=== PATIENT | female | born 1995 | race Caucasian/White ===

== ENCOUNTER 2021-11-25 00:07 | Emergency (ER) | payer MEDICAID ==
[~2021-11-25] VITALS: Ht 170.2 cm; Wt 95.3 kg
[2021-11-25 02:25] LABS: Urine Bacteria MANY /hpf (None Seen); Urine Blood Negative /uL (Negative); Urine Mucus FEW (None Seen); Urine Specific Gravity 1.028 (1.001-1.035); Urine WBC 28 /hpf (0 - 5); Urine WBC Clumps PRESENT /hpf (None Seen)
[2021-11-25 03:33] LABS: Basophils # (auto) 0 10 ^3/uL (0-0.2); Basophils % (auto) 0.3 % (0.0-2.0); Eosinophils # (auto) 0 10 ^3/uL (0-0.8); Eosinophils % (auto) 0.2 % (0.0-7.0); Hematocrit 42.1 % (36.0-46.0); Hemoglobin 14.1 g/dL (12.2-16.2); Lymphocytes # (auto) 1.9 10 ^3/uL (0.4-5.4); Mean Corpuscular Hemoglobin 28.9 pg (28.0-32.0); Mean Corpuscular Hgb Conc. 33.5 g/dL (32.0-36.0); Mean Corpuscular Volume 86.1 fL (80.0-100.0); Monocytes # (auto) 0.8 10 ^3/uL (0-1.3); Monocytes % (auto) 6.9 % (0.0-12.0); Neutrophils # (auto) 8.3 10 ^3/uL (1.6-8.6); Neutrophils % (auto) 75.6 % (37.0-80.0); Nucleated Red Blood Cells % 0.1 %; Red Blood Cells 4.89 10^6/uL (4.0-5.20); Red Cell Distribution Width 14.1 % (11.8-14.3)
[2021-11-25 03:42] LABS: Albumin 2.5 g/dL (3.4-5.0); Calcium 8.9 mg/dL (8.5-10.1); Potassium 4.4 mmol/L (3.5-5.1)
[2021-11-25 03:45] LABS: BUN/Creatinine Ratio 14.8
[2021-11-25 03:48] LABS: Bilirubin, Total 0.4 mg/dL (0.2-1.0); Total Protein 6.4 g/dL (6.4-8.2)
[2021-11-25] MEDS ORDERED: PRENCAP69 PO (05:38)
[2021-11-25] MEDS ORDERED: CEPH500C PO (05:38)
[2021-11-25 06:20] VITALS: BP 148/91
== END 2021-11-25 07:54 | disposition home or self-care (01) ==
LOC: ER 00:07
DX: O23.42 Unspecified infection of urinary tract in pregnancy, second trimester (principal); N39.0 Urinary tract infection, site not specified; Z3A.16 16 weeks gestation of pregnancy
CPT/HCPCS: 36415; 76805; 80053; 81001; 81025; 84702; 85025

== ENCOUNTER 2022-04-17 10:10 | Inpatient (IN) | payer MEDICAID ==
[~2022-04-17] VITALS: Ht 1 cm; Wt 1.0 kg
[2022-04-17] VITALS (16 sets, daily range): BP systolic 94–149; BP diastolic 61–89
[~2022-04-17 10:10] MED LIST: CEPH500C PO; PRENCAP69 PO
[2022-04-17] MEDS ORDERED: SUCCINYLCHOLINE CHLORIDE 20 MG/ML 10ML VIAL IV ONE (10:22)
[2022-04-17] MEDS ORDERED: MEPERIDINE HCL (25 MG/ML) 1ML VIAL ONE (10:39)
[2022-04-17] MEDS ORDERED: fentaNYL CITRATE 100 MCG/2 ML VL ONE (10:40)
[2022-04-17] MEDS ORDERED: MIDAZOLAM HCL 2MG/2ML 2ml VIAL (1mg/ml) ONE (10:40)
[2022-04-17] MEDS ORDERED: LACTATED RINGER'S 1,000 ML IV ONE (10:45)
[2022-04-17] MEDS: LACTATED RINGER'S 1,000 ML IV SCH (10:45)
[2022-04-17] MEDS ORDERED: PROPOFOL 10 MG/ML 20 ML IV ONE (11:00)
[2022-04-17] MEDS ORDERED: oxyTOCIN 10 UNIT/ML 10ML VIAL ONE (11:00)
[2022-04-17] MEDS ORDERED: ONDANSETRON HCL 4 MG/2 ML VIAL IV PRN ×2 (11:15→11:45)
[2022-04-17] MEDS ORDERED: LACT. RINGERS/OXYTOCIN 20UNITS 1,000 ML IV ONE (11:15)
[2022-04-17] MEDS ORDERED: HYDROmorphone HCL 2 MG/ML VL/or syr IV PRN (11:45)
[2022-04-17] MEDS ORDERED: MIDAZOLAM HCL 2MG/2ML 2ml VIAL (1mg/ml) IV PRN (11:45)
[2022-04-17] MEDS ORDERED: ePHEDrine SULFATE 50 MG/ML AMP IV PRN (11:45)
[2022-04-17] MEDS ORDERED: METOCLOPRAMIDE HCL 5MG/ml INJ 2ml VIAL IV PRN (11:45)
[2022-04-17] MEDS ORDERED: MORPHINE SULFATE 4 MG/ML SYR/VIAL IV PRN (11:45)
[2022-04-17] MEDS ORDERED: LABETALOL HCL 5 MG/ML 4ML SYRINGE IV PRN (11:45)
[2022-04-17] MEDS: LACT. RINGERS/OXYTOCIN 20UNITS 1,000 ML IV SCH ×2 (12:15→18:55)
[2022-04-17] MEDS ORDERED: OXYTOCIN 10UNIT/ML 1ML VIAL ONE (12:18)
[2022-04-17 12:22] LABS: Basophils # (auto) 0 10 ^3/uL (0-0.2); Basophils % (auto) 0.2 % (0.0-2.0); Eosinophils # (auto) 0 10 ^3/uL (0-0.8); Eosinophils % (auto) 0.2 % (0.0-7.0); Hematocrit 44.2 % (36.0-46.0); Hemoglobin 15.2 g/dL (12.2-16.2); Lymphocytes # (auto) 2.6 10 ^3/uL (0.4-5.4); Lymphocytes % (auto) 12.2 % (10.0-50.0); Mean Corpuscular Hemoglobin 29.9 pg (28.0-32.0); Mean Corpuscular Hgb Conc. 34.4 g/dL (32.0-36.0); Mean Corpuscular Volume 86.9 fL (80.0-100.0); Monocytes # (auto) 1.2 10 ^3/uL (0-1.3); Monocytes % (auto) 5.4 % (0.0-12.0); Neutrophils # (auto) 17.8 10 ^3/uL (1.6-8.6); Red Blood Cells 5.09 10^6/uL (4.0-5.20); Red Cell Distribution Width 13.8 % (11.8-14.3); White Blood Cell 21.7 10^3/uL (4.4-10.8)
[2022-04-17 12:45] LABS: Albumin 1.7 g/dL (3.4-5.0); Anion Gap 8 (5-15); Blood Urea Nitrogen 12 mg/dL (7-18); Calcium 8.1 mg/dL (8.5-10.1); Carbon Dioxide 20 mmol/L (21-32); Chloride 111 mmol/L (98-107); Glucose 114 mg/dL (74-106); Potassium 4.5 mmol/L (3.5-5.1); Sodium 139 mmol/L (136-145)
[2022-04-17 12:54] LABS: Alanine Aminotransferase 23 U/L (13-56); Alkaline Phosphatase 147 U/L (45-117); Aspartate Aminotransferase 17 U/L (15-37); BUN/Creatinine Ratio 12.8; Bilirubin, Total < 0.1 mg/dL (0.2-1.0); GFR African American 91 mL/min; GFR Non-African American 75 mL/min; Total Protein 5.6 g/dL (6.4-8.2)
[2022-04-17] MEDS ORDERED: IBUP800T27 PO (14:13)
[2022-04-17] MEDS ORDERED: DOCU-94 PO (14:13)
[2022-04-17] MEDS ORDERED: HYDR-4902 PO (14:13)
[2022-04-17] MEDS ORDERED: diphenhdrAMINE HCL 50 MG/1 ML VL IV ONE (14:32)
[2022-04-17] MEDS ORDERED: METOCLOPRAMIDE HCL 5MG/ml INJ 2ml VIAL IV ONE (14:32)
[2022-04-17] MEDS ORDERED: DexAMETHasone SOD PHOS 10MG/1ML VIAL INJ IV ONE (14:32)
[2022-04-17 17:03] LABS: Amphetamine Screen, Urine POSITIVE (NEGATIVE); Barbiturate Scree,Urine NEGATIVE (NEGATIVE); Benzodiazephine Screen, Urine POSITIVE (NEGATIVE); Cocaine Screen, Urine NEGATIVE (NEGATIVE); Opiate Scree,Urine NEGATIVE (NEGATIVE)
[2022-04-17 17:03] LABS: Urine Amorphous Crystal FEW /hpf (None Seen); Urine Bacteria NONE SEEN /hpf (None Seen); Urine Blood 3+ /uL (Negative); Urine Mucus FEW (None Seen); Urine Specific Gravity 1.037 (1.001-1.035); Urine WBC 1 /hpf (0 - 5)
[2022-04-17 17:11] LABS: Cannabinoid Screen, Urine POSITIVE (NEGATIVE); Phencyclidine Screen, Urine NEGATIVE (NEGATIVE)
[2022-04-17] MEDS: ACETAMINOPHEN IV 1000 MG/100ML (10MG/ML) IV PRN (17:59)
[2022-04-17] MEDS: ceFAZolin 1GM/50ML 50 ML IV SCH (18:28)
[2022-04-17 20:25] LABS: Basophils # (auto) 0 10 ^3/uL (0-0.2); Basophils % (auto) 0.1 % (0.0-2.0); Eosinophils # (auto) 0 10 ^3/uL (0-0.8); Hematocrit 37.8 % (36.0-46.0); Hemoglobin 12.9 g/dL (12.2-16.2); Lymphocytes # (auto) 1.3 10 ^3/uL (0.4-5.4); Lymphocytes % (auto) 6.6 % (10.0-50.0); Mean Corpuscular Hemoglobin 29.5 pg (28.0-32.0); Mean Corpuscular Hgb Conc. 34.2 g/dL (32.0-36.0); Mean Corpuscular Volume 86.2 fL (80.0-100.0); Monocytes # (auto) 0.8 10 ^3/uL (0-1.3); Neutrophils % (auto) 89.3 % (37.0-80.0); Red Blood Cells 4.39 10^6/uL (4.0-5.20); Red Cell Distribution Width 13.9 % (11.8-14.3); White Blood Cell 20.2 10^3/uL (4.4-10.8)
[2022-04-17] MEDS ORDERED: GUM (CHEWING) 1 GUM CHEW CHEW ONE (23:00)
[2022-04-18] VITALS (15 sets, daily range): BP systolic 118–153; BP diastolic 72–98
[2022-04-18] MEDS: HYDROmorphone HCL 2 MG/ML VL/or syr IV PRN ×2 (01:18→05:39)
[2022-04-18] MEDS: ceFAZolin 1GM/50ML 50 ML IV SCH ×4 (04:51→22:19)
[2022-04-18] MEDS: LACTATED RINGER'S 1,000 ML IV SCH (04:52)
[2022-04-18 05:06] LABS: RPR Non Reactive (Non Reactive)
[2022-04-18 06:31] LABS: Basophils # (auto) 0.2 10 ^3/uL (0-0.2); Eosinophils # (auto) 0 10 ^3/uL (0-0.8); Hematocrit 36.9 % (36.0-46.0); Hemoglobin 12.7 g/dL (12.2-16.2); Lymphocytes % (auto) 11.4 % (10.0-50.0); Mean Corpuscular Hgb Conc. 34.3 g/dL (32.0-36.0); Mean Corpuscular Volume 87.3 fL (80.0-100.0); Monocytes # (auto) 1.3 10 ^3/uL (0-1.3); Monocytes % (auto) 7.5 % (0.0-12.0); Neutrophils # (auto) 14.2 10 ^3/uL (1.6-8.6); Neutrophils % (auto) 80.1 % (37.0-80.0); Red Blood Cells 4.22 10^6/uL (4.0-5.20); Red Cell Distribution Width 14.3 % (11.8-14.3); White Blood Cell 17.8 10^3/uL (4.4-10.8)
[2022-04-18] MEDS: ACETAMINOPHEN IV 1000 MG/100ML (10MG/ML) IV PRN (07:05)
[2022-04-18] MEDS ORDERED: HYDROcodone-ACET 5/325MG TAB PO PRN (10:30)
[2022-04-18] MEDS ORDERED: BISACODYL 10 MG RECT SUPP PR PRN (10:30)
[2022-04-18] MEDS: HYDROcodone-ACET 5/325MG TAB PO PRN ×2 (12:50→17:29)
[2022-04-18] MEDS: SIMETHICONE 80 MG CHEWABLE TABLET PO SCH ×3 (12:50→22:19)
[2022-04-18] MEDS: DOCUSATE SOD 100 MG CAP PO SCH (22:19)
[2022-04-18] MEDS: IBUPROFEN 800 MG TAB PO PRN (22:23)
[2022-04-19] VITALS (7 sets, daily range): BP systolic 120–148; BP diastolic 74–98
[2022-04-19] MEDS: HYDROcodone-ACET 5/325MG TAB PO PRN ×2 (06:29→21:51)
[2022-04-19] MEDS: SIMETHICONE 80 MG CHEWABLE TABLET PO SCH ×4 (06:29→21:50)
[2022-04-19] MEDS: ceFAZolin 1GM/50ML 50 ML IV SCH ×3 (06:29→21:51)
[2022-04-19] MEDS: DOCUSATE SOD 100 MG CAP PO SCH ×2 (09:50→21:50)
[2022-04-19] MEDS: DOCUSATE CALCIUM 240 MG CAP PO SCH (09:50)
[2022-04-19] MEDS: IBUPROFEN 800 MG TAB PO PRN (20:35)
[2022-04-20 03:00] VITALS: BP 126/93
[2022-04-20] MEDS: IBUPROFEN 800 MG TAB PO PRN (05:33)
[2022-04-20] MEDS: SIMETHICONE 80 MG CHEWABLE TABLET PO SCH ×2 (05:33→11:29)
[2022-04-20] MEDS: ceFAZolin 1GM/50ML 50 ML IV SCH (05:34)
[2022-04-20 07:00] VITALS: BP 119/66
[2022-04-20] MEDS ORDERED: CEPH500T PO (08:34)
[2022-04-20] MEDS: DOCUSATE CALCIUM 240 MG CAP PO SCH (10:05)
[2022-04-20] MEDS: DOCUSATE SOD 100 MG CAP PO SCH (10:05)
[2022-04-20 10:48] VITALS: BP 104/71
== END 2022-04-20 12:01 | disposition home or self-care (01) | DRG 540 ==
LOC: LDRP 10:10 → OBSVTOIN 10:15 → LDRP 10:38
PROVIDERS: ADMIT Obstetrics & Gynecology; ATTEND Obstetrics & Gynecology
PROC: 10D00Z1 Extraction of Products of Conception, Low, Open Approach (ICD-10-PCS; principal; 2022-04-17 10:24)
DX: O42.92 Full-term premature rupture of membranes, unspecified as to length of time between rupture and onset of labor (principal); O99.214 Obesity complicating childbirth; E66.01 Morbid (severe) obesity due to excess calories; O32.1XX0 Maternal care for breech presentation, not applicable or unspecified; Z37.0 Single live birth; Z3A.37 37 weeks gestation of pregnancy; Z20.822 Contact with and (suspected) exposure to COVID-19
CPT/HCPCS: 36415; 80053; 80307; 81001; 81002; 85025; 86592; 86850; 86900; 86901; 94760; 94762; 96360; 96361; 96365; 96366; 96374; 96375; G0378; J0131; J0330; J0690; J1100; J2250; J2590; J2704

== ENCOUNTER 2023-03-16 18:21 | Emergency (ER) | payer MEDICAID ==
[~2023-03-16] VITALS: Ht 170.2 cm; Wt 153.0 kg
[~2023-03-16 18:21] MED LIST changes: +CEPH500T PO; +DOCU-94 PO; +HYDR-4902 PO; +IBUP800T27 PO
[2023-03-16 23:17] VITALS: BP 138/105
[2023-03-16] MEDS ORDERED: IBUP800T27 PO (23:28)
== END 2023-03-16 23:19 | disposition home or self-care (01) ==
LOC: ER 18:21
DX: S16.1XXA Strain of muscle, fascia and tendon at neck level, initial encounter (principal); S33.5XXA Sprain of ligaments of lumbar spine, initial encounter; S33.8XXA Sprain of other parts of lumbar spine and pelvis, initial encounter; R51.9 Headache, unspecified; R07.89 Other chest pain; M79.672 Pain in left foot; V89.2XXA Person injured in unspecified motor-vehicle accident, traffic, initial encounter; Y93.89 Activity, other specified; Y92.89 Other specified places as the place of occurrence of the external cause; Y99.8 Other external cause status
CPT/HCPCS: 70250; 72040; 72070; 72100